=== PATIENT | male | born 1975 | race Caucasian/White ===

== ENCOUNTER 2017-09-28 23:13 | Inpatient (IN) | payer OTHER ==
[~2017-09-28] VITALS: Ht 177.8 cm; Wt 99.8 kg
--- NOTE | ~2017-09-28 | EKG ---
[address] [address] ELECTROCARDIOGRAM REPORT Name: ROMIE SCHMIDT Room #: 416-P [facility] IN [facility]#: [id number] Admission: 09/29/17 Attend Phys: Juan Post MD Discharge: Date of : 73 Report #: [id number] THIS REPORT FOR: //name// [facility] ED Test Date: 2017-09-29 Test Time: 00:18:03 Pat Name: ROMIE SCHMIDT Department: Room: Gender: M [employer]er: : 1975 Requested By: Roz Benton Order Number: [id number] MD: Garth Barakat Measurements Intervals [place] Rate: 66 P: 13 VA: 150 QRS: 36 QRSD: 88 T: 27 QT: 383 QTc: 402 Interpretive Statements Sinus rhythm No previous ECG available for comparison Electronically Signed On 09-29-2017 8:22:16 CDT by Garth Barakat [email or web address] <ELECTRONICALLY SIGNED> By: Garth Barakat MD 09/29/17 0822 0018 0018 MD ERIN Harris
[2017-09-28 23:31] VITALS: BP 145/92
[2017-09-28] MEDS ORDERED: COZAAR 25 MG TA25 MG PO (23:33)
[2017-09-28 23:59] LABS: ABSOLUTE NEUTROPHILS 11.6 thou/uL (1.4-8.2); BASOPHILS 0.7 % (0.0-2.0); EOSINOPHILS 0.7 % (0.0-3.0); HEMATOCRIT 41.7 % (42.0-52.0); HEMOGLOBIN 14.2 gm/dL (14.0-18.0); LYMPHOCYTES 12.6 % (24.0-44.0); MCV 85.3 fL (80.0-100.0); MONOCYTES 5.2 % (1.0-8.0); PLATELET COUNT 244 thou/uL (150-400); POLYS 80.8 % (36.0-66.0); RBC 4.89 mil/uL (4.50-6.00); RDW 13.1 % (10.5-14.5); WBC 14.4 thou/uL (4.0-11.0)
[2017-09-29] LABS: URINE BILIRUBIN NEGATIVE (Negative); URINE BLOOD NEGATIVE (Negative); URINE CLARITY CLEAR; URINE COLOR YELLOW; URINE GLUCOSE-RANDOM* NEGATIVE (Negative); URINE KETONES TRACE (Negative); URINE LEUKOCYTES NEGATIVE (Negative); URINE NITRITE NEGATIVE (Negative); URINE PROTEIN (DIPSTICK) NEGATIVE (Negative); URINE SPECIFIC GRAVITY >= 1.030 (1.005-1.035); URINE UROBILINOGEN 0.2 E.U./dl (0.2-1.0)
[2017-09-29 00:03] LABS: CALCIUM 9.5 mg/dL (8.5-10.1); CREATININE 1.4 mg/dL (0.7-1.3); POTASSIUM 3.9 mmol/L (3.5-5.1)
[2017-09-29 00:09] LABS: ALBUMIN 3.9 g/dL (3.4-5.0); DIRECT BILIRUBIN 0.1 mg/dL (<0.1-0.3); TOTAL BILIRUBIN 0.4 mg/dL (<0.1-1.0); TOTAL PROTEIN 6.8 g/dL (6.4-8.2)
[2017-09-29 01:25] VITALS: BP 135/86
[2017-09-29 01:41] VITALS: BP 130/85
[2017-09-29 04:00] VITALS: BP 169/60
[2017-09-29 06:51] LABS: HEMATOCRIT 40.4 % (42.0-52.0); HEMOGLOBIN 13.4 gm/dL (14.0-18.0); MCH 28.8 pg (26.0-34.0); MCHC 33.3 g/dL (28.0-37.0); MCV 86.4 fL (80.0-100.0); RBC 4.68 mil/uL (4.50-6.00); RDW 13.4 % (10.5-14.5); WBC 15.2 thou/uL (4.0-11.0)
[2017-09-29 07:07] LABS: CALCIUM 9.2 mg/dL (8.5-10.1); CREATININE 1.3 mg/dL (0.7-1.3)
[2017-09-29 08:32] VITALS: BP 124/71
[2017-09-29 21:11] VITALS: BP 140/89
[2017-09-30 00:27] VITALS: BP 111/53
[2017-09-30 05:19] VITALS: BP 110/64
[2017-09-30 08:00] VITALS: BP 115/75
[2017-09-30] MEDS ORDERED: AUGMENTIN 875-1 EACH PO (11:55)
[2017-09-30] MEDS ORDERED: HYDROCODON-ACE1 EAC7 PO (11:56)
[2017-09-30 12:05] VITALS: BP 115/75
== END 2017-09-30 13:19 | disposition home or self-care (01) | DRG 853 ==
LOC: ER 23:13 → 4N 09-29 01:24 → EROBS 09-29 01:24 → 4N 09-29 02:09 → ENTRNSPT 09-30 12:57 → EDTRNSPTSTS 09-30 12:59 → 4N 09-30 13:19
PROVIDERS: Emergency Medicine; Nurse Practitioner Family
PROC: 0DTJ4ZZ Resection of Appendix, Percutaneous Endoscopic Approach (ICD-10-PCS; principal; 2017-09-29)
PROC: 0WQF4ZZ Repair Abdominal Wall, Percutaneous Endoscopic Approach (ICD-10-PCS; principal; 2017-09-29)
DX: A41.9 Sepsis, unspecified organism (principal); K35.3 Acute appendicitis with localized peritonitis; K42.9 Umbilical hernia without obstruction or gangrene; K40.20 Bilateral inguinal hernia, without obstruction or gangrene, not specified as recurrent; I10 Essential (primary) hypertension; Z79.899 Other long term (current) drug therapy; Z82.49 Family history of ischemic heart disease and other diseases of the circulatory system; Z83.49 Family history of other endocrine, nutritional and metabolic diseases
CPT/HCPCS: 10091; 50010; 50101; 50249; 50411; 50555; 50558; 50739; 50740; 50962; 51489; 51975; 52265; 53307; 53310; 54022; 54118; 56525; 56526; 62110; 62900; 70005